=== PATIENT | female | born 2005 | race Caucasian/White ===

== ENCOUNTER 2024-03-01 14:58 | Outpatient (CLI) | payer BC | END 2024-03-01 14:59 | disposition home or self-care (01) | LOC: SCSRAD 14:58 | PROVIDERS: ATTEND Family Medicine | DX: M79.641 Pain in right hand (principal) ==

== ENCOUNTER 2024-04-26 15:24 | Outpatient (CLI) | payer BC | END 2024-04-26 15:25 | disposition home or self-care (01) | LOC: SCSMRI 15:24 | PROVIDERS: ATTEND Orthopaedic Surgery Hand Surgery | DX: S63.634A Sprain of interphalangeal joint of right ring finger, initial encounter (principal); M20.021 Boutonniere deformity of right finger(s) ==